=== PATIENT | male | born 1995 | race Caucasian/White ===

== ENCOUNTER 2024-11-06 11:07 | Emergency (ER) | payer BC, OTHER ==
[~2024-11-06] VITALS: Ht 172.7 cm; Wt 84.1 kg
[2024-11-06 11:18] VITALS: TEMP 98.2
[2024-11-06] MEDS: LIDOCAINE/PF 1% 2 ML VIAL IM ONE (12:20)
[2024-11-06] MEDS: CefTRIAXone SODIUM 1 GM/VIAL IM ONE (12:20)
[2024-11-06] MEDS: DOXYCYCLINE HYCLATE 100 MG TABLET PO ONE (12:21)
[2024-11-06] MEDS ORDERED: DOXY-354 PO (12:44)
[2024-11-06 12:54] LABS: APPEARANCE,URINE HAZY (CLEAR); BILIRUBIN,URINE NEGATIVE (NEGATIVE); COLOR,URINE YELLOW (YELLOW); GLUCOSE, URINE (UA) NEGATIVE (NEGATIVE); KETONES,URINE NEGATIVE (NEGATIVE); LEUKOCYTE ESTERASE ,URINE LARGE (NEGATIVE); NITRATE,URINE NEGATIVE (NEGATIVE); OCCULT BLOOD,URINE TRACE (NEGATIVE); PROTEIN,URINE 30-70 mg/dL (NEGATIVE); SPECIFIC GRAVITIY, URINE 1.017 (1.003-1.030); UROBILINOGEN,URINE <=1.0 mg/dL (<=1.0)
[2024-11-06 13:33] LABS: RBC,URINE 0-2 /HPF (0-2); WBC,URINE 51-100 /HPF (0-5)
[2024-11-06 13:34] LABS: BACTERIA,URINE Few /HPF (None Seen)
[2024-11-06 14:10] VITALS: BP 128/86; PULSE 93; RESP 18; O2SAT 99
== END 2024-11-06 14:49 | disposition home or self-care (01) ==
LOC: EMS 11:07
DX: N34.2 Other urethritis (principal)
CPT/HCPCS: 99283; 81001; 87086; 96372; J0696; J3490